=== PATIENT | female | born 1965 | race Caucasian/White ===

== ENCOUNTER → 2019-12-30 09:21 | Outpatient (CLI) | payer OTHER, SELFPAY ==
--- NOTE | ~2019-12-30 | US_ITS ---
EXAMINATION:US venous doppler LE LT INDICATION:Left leg swelling. Osteoarthritis of the left knee. TECHNIQUE: Multiple grayscale, color flow and Doppler images of the left lower extremity deep venous systems were obtained and reviewed. COMPARISON:No prior studies for comparison. FINDINGS: The common femoral, superficial femoral and popliteal veins demonstrate normal respiratory variation, augmentation and compressibility. Color flow is also seen within the posterior tibial, pe roneal, greater saphenous and profunda veins. IMPRESSION: 1: No lower extremity deep venous thrombosis. Reviewed, dictated and finalized at location A.
== END ==
PROVIDERS: PCP Family Medicine; Visit Provider Internal Medicine
DX: M79.89 Other specified soft tissue disorders (principal); M17.12 Unilateral primary osteoarthritis, left knee
CPT/HCPCS: 93971

== ENCOUNTER 2020-04-07 16:16 | Emergency (ER) | payer OTHER, SELFPAY ==
--- NOTE | ~2020-04-07 | CT_ITS ---
EXAMINATION: CT brain wo con DATE: 04/07/2020 16:57 INDICATION: Right-sided head injury post fall TECHNIQUE: Computed tomography (CT) of the head was performed without intravenous contrast. Sagittal and coronal reconstructions were performed. The mA was adjusted according to patient size. Iterative reconstruction technique was employed. The dose-length product was 605.33 mGy-cm. COMPARISON: None FINDINGS: Right frontal scalp hematoma. No fracture. No acute intracranial hemorrhage, acute infarction or abno rmal extra axial fluid collection. Ventricles are normal and symmetric. No mass/mass effect. Moderate posteriorly layering fluid/mucus in the right sphenoid sinus. The orbits and mastoid air cells are n ormal. IMPRESSION: 1. Normal brain. No fracture or acute intracranial process. Reviewed, dictated and finalized at location A. 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
[2020-04-07 16:22] VITALS: BP 151/80; PULSE 86; RESP 16; TEMP 35.4; O2SAT 100
--- NOTE | 2020-04-07 16:43 | ED.GENADULT ---
HPI - General Adult General Chief complaint: Fall Stated complaint: fall/face injury Time Seen by Provider: 04/07/20 16:37 Source: patient Mode of arrival: ambulatory Limitations: no limitations History of Present Illness HPI narrative: Patient is a 55-year-old female who presents with family for evaluation of head injury that occurred just prior to arrival patient lost her balance on the tailgate of a truck falling striking the face denies loss of consciousness presents with bruising to the forehead and cheek patient notes mild discomfort at the bruised swollen areas denies any neck pain notes mild discomfort of the left knee and left wrist but does not wish for any imaging of these locations notes that she has only worried about her head at this time denies neck pain or other skeletal concerns Related Data Allergies Allergy/AdvReac Type Severity Reaction Status Date / Time No Known Allergies Allergy Unverified 04/25/19 10:21 Review of Systems Review of Systems: All systems reviewed & are unremarkable except as noted in HPI and below PMFSH Family History Family History (Updated 06/17/17 @ 09:42 by DOCTOR UNKNOWN) Father Diabetes mellitus Social History Social History Smoking status: Never smoker Alcohol intake: never Exam Narrative: Exam Narrative: GENERAL: Well-appearing, well-nourished, and in no acute distress. HEAD: Normocephalic, bruising to the forehead and right side of the face EYES: PERRLA and EOMI. ENT: Nares clear, no rhinorrhea or epistaxis. Mucous membranes moist. NECK: Supple. No adenopathy or masses. CHEST: Clear to auscultation. No respiratory distress. No wheezes rales or rhonchi HEART: Regular rate and rhythm. No murmur heard. EXTREMITIES: Normal range of motion. No edema. Mild tenderness of the left wrist ulnar aspect and left knee SKIN: Warm, dry, no rash. NEURO: No focal deficits. Alert and oriented x3. Cranial nerves II through XII grossly intact. Neurovascularly intact PSYCH: Normal mood and affect. Course Course Emergency Course: Patient in the room no distress aware of case findings treatment plan diagnosis felt appropriate for outpatient reevaluation negative CT imaging of the Vital Signs Vital signs: Vital Signs Temperature 95.7 F L 04/07/20 16:22 Pulse Rate 86 04/07/20 16:22 Respiratory Rate 16 04/07/20 16:22 Blood Pressure 151/80 H 04/07/20 16:22 Pulse Oximetry 100 04/07/20 16:22 Temperature 95.7 F L 04/07/20 16:22 Pulse Rate 86 04/07/20 16:22 Respiratory Rate 16 04/07/20 16:22 Blood Pressure 151/80 H 04/07/20 16:22 Pulse Oximetry 100 04/07/20 16:22 Medical Decision Making MDM Narrative Medical decision making narrative: Negative CT imaging of the head patient refused other skeletal imaging at this time due to feeling as though the injuries were minor will be discharged home provided with reasons to return felt appropriate for outpatient reevaluation Vital Signs Vital Signs: Vital Signs Temperature 95.7 F L 04/07/20 16:22 Pulse Rate 86 04/07/20 16:22 Respiratory Rate 16 04/07/20 16:22 Blood Pressure 151/80 H 04/07/20 16:22 Pulse Oximetry 100 04/07/20 16:22 Temperature 95.7 F L 04/07/20 16:22 Pulse Rate 86 04/07/20 16:22 Respiratory Rate 16 04/07/20 16:22 Blood Pressure 151/80 H 04/07/20 16:22 Pulse Oximetry 100 04/07/20 16:22 Discharge Plan Discharge Clinical Impression: Head injury Patient Disposition: Home, Self-Care Condition: Stable Instructions: Antibiotic Form, Head Injury (ED) Additional Instructions: Follow up with your primary care doctor in 5-7 days for re-evaluation. Go to ER for worsening pain, vision changes, nausea/vomiting, fever/chills, weakness, chest pain, shortness of breath, numbness/tingling, slurred speech, difficulty walking, change in mental status etc. or any other concerns. Take any presc
== END 2020-04-07 17:26 | disposition home or self-care (01) ==
PROVIDERS: Emergency Provider Emergency Medicine; PCP Family Medicine
DX: S09.90XA Unspecified injury of head, initial encounter (principal); W17.89XA Other fall from one level to another, initial encounter
CPT/HCPCS: 70450; 99284

== ENCOUNTER 2021-10-03 11:05 | Outpatient (CLI) | payer OTHER, SELFPAY ==
--- NOTE | 2021-10-09 16:16 | WPDHOLTEREM ---
Holter/Event Monitor Holter/Event Monitor Date of procedure: 10/03/21 Holter/Event Procedure: 48 Hr Holter Monitor Indications: Palpitations Conclusion: 1. 48 hour holter monitor on 10/03/21. 2. Underlying rhythm is sinus rhythm. HR range 58-124 bpm; average HR 92 bpm. 3. There are 7,361 premature supraventricular complexes, 4 supraventricular couplets, 1 ventricular triplet, and 454 supraventricular trigeminy. No supraventricular tachycardia. 4. There are 14 premature ventricular complexes and 1 ventricular couplet. No ventricula tachycardia. 5. No sinoatrial or atrioventricular blocks. No significant pauses greater than 2 seconds. 6. Patient reports symptoms of irregular heart beat which demonstrate sinus rhythm at 89 bpm with PVC.
== END 2021-10-03 11:06 | disposition home or self-care (01) ==
LOC: ANHCARD 11:06
PROVIDERS: PCP Family Medicine; Visit Provider Family Medicine
DX: R00.2 Palpitations (principal)
CPT/HCPCS: 93225; 93226

== ENCOUNTER 2022-02-06 12:18 | Outpatient (CLI) | payer OTHER, SELFPAY ==
[2022-02-06 20:42] LABS: Rubella IgG Antibody > 110.0 IU/ML
[2022-02-09 10:23] LABS: Mumps Virus IgG Antibody <9.00 AU/mL
[2022-02-09 12:26] LABS: NIL 0.03 IU/mL; Quantiferon TB Plus, 1T NEGATIVE (NEGATIVE); TB1-NIL 0.01 IU/mL; TB2-NIL 0.06 IU/mL
== END 2022-02-06 12:19 | disposition home or self-care (01) ==
LOC: ANHGOSHLAB 12:20
PROVIDERS: PCP Family Medicine; Visit Provider Family Medicine
DX: E03.9 Hypothyroidism, unspecified (principal); Z01.84 Encounter for antibody response examination; Z11.1 Encounter for screening for respiratory tuberculosis
CPT/HCPCS: 36415; 84443; 86480; 86735; 86762; 86765

== ENCOUNTER 2022-03-05 09:10 | Outpatient (CLI) | payer OTHER, SELFPAY ==
--- NOTE | 2022-03-05 09:13 | EST_ITS ---
Patient Info Name: Yusra Barraza Age: 56 years : 1965 Gender: Female Ht: 65 in Wt: 185 lbs BSA: 1.99 m2 Exam Date: 03/05/2022 9:40 AM [facility] Patient Status: Outpatient Admit Date: 03/05/2022 Staff Ordering Physician: Angi Moore MD Professor Of Chemical Engineering: Chantel Simms RDCS Attending Provider: DR. LEWIS Referring Physician: Oscar MAHAJAN; Exercise Technologist: Chantel Simms RDCS Exercise Physician: Devyn Lewis DO Exam Type: CA stress echo Study Info Indications R00.2 - Palpitations Treadmill exercise stress echocardiogram is performed. Summary 1. 1. Negative Jin exercise stress test for ischemic ST changes by ECG criteria. 2. 2. Good functional capacity, achieving 10 METs of workload. 3. 3. Baseline hypertension. 4. 4. Appropriate HR response to exercise. 5. 5. Appropriate HR recovery at 1 minute post exercise. 6. 6. Negative stress echocardiogram for ischemia by wall motion analysis. 7. 7. Patient informed of the above results. Stress Echo Findings Left Ventricle Appropriate increase in LV endocardial thickening with systole. Appropriate augmentation of contractility with systole. No wall motioin abnormality. Left Ventricle Normal LV systolic function, no wall motion abnormality. Protocol: Jin Stress ECG Details Stage: REST Duration (min): 1 min : 30 sec Speed (mph): 0.0 Grade (%): 0 HR (bpm): 81 SBP (mmHg): 149 DBP (mmHg): 96 METS: --- Stage: REST Duration (min): 10 min : 55 sec Speed (mph): 0.0 Grade (%): 0 HR (bpm): 88 SBP (mmHg): 149 DBP (mmHg): 96 METS: --- Stage: STAGE 1 Duration (min): 1 min : 0 sec Speed (mph): 1.7 Grade (%): 10 HR (bpm): 100 SBP (mmHg): 149 DBP (mmHg): 96 METS: --- Stage: STAGE 1 Duration (min): 2 min : 0 sec Speed (mph): 1.7 Grade (%): 10 HR (bpm): 107 SBP (mmHg): 149 DBP (mmHg): 96 METS: --- Stage: STAGE 1 Duration (min): 3 min : 0 sec Speed (mph): 1.7 Grade (%): 10 HR (bpm): 111 SBP (mmHg): 155 DBP (mmHg): 82 METS: --- Stage: STAGE 2 Duration (min): 1 min : 0 sec Speed (mph): 2.5 Grade (%): 12 HR (bpm): 119 SBP (mmHg): 155 DBP (mmHg): 82 METS: --- Stage: STAGE 2 Duration (min): 2 min : 0 sec Speed (mph): 2.5 Grade (%): 12 HR (bpm): 127 SBP (mmHg): 156 DBP (mmHg): 82 METS: --- Stage: STAGE 2 Duration (min): 3 min : 0 sec Speed (mph): 2.5 Grade (%): 12 HR (bpm): 132 SBP (mmHg): 156 DBP (mmHg): 82 METS: --- Stage: STAGE 3 Duration (min): 1 min : 0 sec Speed (mph): 3.4 Grade (%): 14 HR (bpm): 144 SBP (mmHg): 160 DBP (mmHg): 87 METS: --- Stage: STAGE 3 Duration (min): 2 min : 0 sec Speed (mph): 3.4 Grade (%): 14 HR (bpm): 146 SBP (mmHg): 160 DBP (mmHg): 87 METS: --- Stage: STAGE 3 Duration (min): 2 min : 31 sec Speed (mph):
== END 2022-03-05 09:11 | disposition home or self-care (01) ==
LOC: ANHCARD 09:11
PROVIDERS: PCP Family Medicine; Visit Provider Family Medicine
DX: R00.2 Palpitations (principal)
CPT/HCPCS: 93351

== ENCOUNTER 2023-10-04 11:49 | Outpatient (CLI) | payer OTHER, SELFPAY ==
[2023-10-04 19:51] LABS: Rubella IgG Antibody > 110.0 IU/ML
[2023-10-06 10:25] LABS: Mumps Virus IgG Antibody <9.00 AU/mL
== END 2023-10-04 11:50 | disposition home or self-care (01) ==
LOC: ANHGOSHLAB 11:52
PROVIDERS: PCP Family Medicine; Visit Provider Nurse Practitioner Family
DX: R89.9 Unspecified abnormal finding in specimens from other organs, systems and tissues (principal)
CPT/HCPCS: 36415; 86735; 86765

== ENCOUNTER 2023-11-10 10:32 | Outpatient (CLI) | payer OTHER, SELFPAY ==
--- NOTE | ~2023-11-10 | XR_ITS ---
XR foot LT min 3V Ordering provider: Namrata Groves, History: . LEFT FOOT PAIN across top of foot for 1 year . Comparison: None. FINDINGS: BONES: No acute fracture or dislocation. Calcaneal spur. JOINT SPACES: Normal. No tarsal coalition. SOFT TISSUES: Normal. Ossification of the insertion of the tendo Achilles. IMPRESSION: No acute osseous abnormality left foot. Reviewed, dictated and finalized at location A.
--- NOTE | ~2023-11-10 | XR_ITS ---
XR cervical spine 4-5V Ordering provider: Namrata Groves, History: . No injury, neck pain for 20 years . Comparison: July 11, 2010 FINDINGS: VERTEBRAL BODIES: Normal height and alignment. No visible fracture or subluxation. The dens is intact . DISK SPACES: Narrowing of the disc C5-C6 and C6-7. Multilevel uncovertebral joint osteoarthritic livingston ges. PARASPINOUS SOFT TISSUES: No prevertebral soft tissue swelling. IMPRESSION: No acute osseous abnormality cervical spine. Consider follow up MRI of the cervical spine if patient has continued neck pain and if there is meron rn for spinal stenosis. Reviewed, dictated and finalized at location A. IMPRESSION: No acute osseous abnormality cervical spine. Consider follow up MRI of the cervical spine if patient has continued neck pain and if there is concern for spinal stenosis.
== END 2023-11-10 10:33 ==
PROVIDERS: PCP Internal Medicine; Visit Provider Internal Medicine
DX: M79.672 Pain in left foot (principal); M54.2 Cervicalgia
CPT/HCPCS: 72050; 73630

== ENCOUNTER 2023-12-01 09:08 | Outpatient (CLI) | payer OTHER, SELFPAY ==
--- NOTE | ~2023-12-01 | MR_ITS ---
MRI of the left foot CLINICAL HISTORY: Pain TECHNIQUE: Axial proton-density and proton-density fat-sat images, sagittal T1-weighted and STIR imag es, and coronal T1-weighted and proton-density fat-sat images were performed. FINDINGS: Bone marrow signals are unremarkable. No fracture, marrow edema, or evidence for osteitis. There is advanced degenerative change at the second tarsometatarsal joint. Remaining joint spaces are intact.. No significant erosive or degenerative change. No joint effusion evident. Flexor and extensor tendons are intact. Probable minimal intermetatarsal bursitis at the third inters pace region. Intrinsic musculature of the foot is unremarkable. Plantar fascia intact. No soft tissue mass or fluid collection seen otherwise. 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 Minimal intermetatarsal bursitis at the third interspace. Reviewed, dictated and finalized at [facility].
--- NOTE | ~2023-12-01 | MR_ITS ---
MR cervical spine wo con Ordering provider: Namrata Groves, History: 58 years Female with . CERVICAL STRAIN, L FOOT PAIN . Comparison: None. Technique: MRI cervical spine without contrast. FINDINGS: CERVICAL SPINAL CORD/CRANIAL CERVICAL JUNCTION: Normal in signal and caliber. CERVICAL VERTEBRAL BODIES: Normal height and alignment. Normal marrow signal. DISK SPACES: Narrowing of the disc C5-C6. C2-C3: No stenosis. C3-C4: No stenosis. Mild diffuse disc bulge. Narrowing of the right foramen at the level of C3-C4. No definite root compression. C4-C5: No stenosis. Mild diffuse disc bulge Narrowing of the right foramen with root compression C5-C6: No stenosis. Mild diffuse disc bulge. Diffuse disc bulge with narrowing of the foramina. No de finite root compression seen. C6-C7: No stenosis. C7-T1: No stenosis. VISUALIZED PARASPINOUS SOFT TISSUES: Normal. IMPRESSION: 1. No acute osseous abnormality. Reviewed, dictated and finalized at location A.
== END 2023-12-01 09:09 ==
LOC: MICIMG 09:09
PROVIDERS: PCP Internal Medicine; Visit Provider Internal Medicine
DX: M19.072 Primary osteoarthritis, left ankle and foot (principal); M71.572 Other bursitis, not elsewhere classified, left ankle and foot; S13.4XXA Sprain of ligaments of cervical spine, initial encounter; X58.XXXA Exposure to other specified factors, initial encounter
CPT/HCPCS: 72141; 73718